=== PATIENT | female | born 1940 | race Caucasian/White ===

== ENCOUNTER → 2017-12-08 08:12 | Outpatient (CLI) | payer OTHER, SELFPAY ==
[2017-12-08 11:41] LABS: C-Reactive Protein 0.06 mg/dL (0.0-0.3); Creatine Kinase 119 U/L (26-192); TSH 1.17 uIU/mL (0.358-3.74)
[2017-12-08 15:22] LABS: ESR 13 MM/HR (0-30)
== END ==
PROVIDERS: PCP Family Medicine; Visit Provider Family Medicine
DX: R29.898 Other symptoms and signs involving the musculoskeletal system (principal)
CPT/HCPCS: 36415; 82550; 85652; 83519; 84443; 86140

== ENCOUNTER → 2017-12-11 02:29 | Outpatient (CLI) | payer OTHER, SELFPAY ==
--- NOTE | 2017-12-11 13:54 | DI.RPTCT_ITS ---
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 THORACIC SPINE: Evaluation of the dorsal spine reveals minimal degenerative changes involving the vertebral bodies with multilevel mild disc space narrowing. The posterior elements and neural canal are intact. There is no evidence of foraminal or central spinal stenosis. LUMBAR SPINE: The examination was carried out according to the usual protocol and reveals narrowed vacuum discs at L4-5 and L5-S1 and a vacuum phenomenon is also noted at L2-3 where there is a small disc protrusion into the superior endplate of L3. Facet joint degenerative changes are most pronounced at L4-5 and L5-S1. There is no evidence of spondylolysis or spondylolisthesis. There is a mild dextrorotoscoliotic curvature of the lumber spine. There are probable small disc protrusions at L3-4 and L4-5. SUMMARY: Fatty infiltration of the paraspinous musculature in the dorsal and lumbar spine is demonstrated, the findings most prominent in the lumbar region. There are mild degenerative changes involving the dorsal spine. Multiple narrowed vacuum discs are noted involving the mid and lower lumbar spine and facet joint DJD is evident.
== END ==
PROVIDERS: PCP Family Medicine; Visit Provider Family Medicine
DX: F44.4 Conversion disorder with motor symptom or deficit (principal); M51.35 Other intervertebral disc degeneration, thoracolumbar region; M51.27 Other intervertebral disc displacement, lumbosacral region; M62.89 Other specified disorders of muscle
CPT/HCPCS: 72128; 72131

== ENCOUNTER → 2017-12-30 13:30 | Outpatient (CLI) | payer OTHER, SELFPAY | PROVIDERS: PCP Family Medicine; Visit Provider Psychiatry & Neurology Neurology | DX: G71.0 Muscular dystrophy (principal) | CPT/HCPCS: 99205 ==

== ENCOUNTER 2017-12-31 10:15 | Outpatient (RCR) | payer OTHER, SELFPAY ==
--- NOTE | 2017-12-09 08:42 | PTTR_ITS ---
DATE: 12/09/17 SUBJECTIVE: Indicated she fatigues easily. OBJECTIVE: Therapeutic procedures ([id number]). * x HEP review: Given supine marching, supine unilateral knee fall outs and standing against wall step out exercise to promote body awareness. Have patient really focus on cervical and scap stabilization, as well as TA activation with each of these activities. Given a balloon to help with activation of TA musculature. * x See flow sheet: Focus on core stabilization in hook lying and standing positions. * x Provided skilled instruction in proper exercise performance * x Provided skilled manual cues to facilitate proper muscle recruitment and/ or movement pattern Direct treatment time: 35 minutes Total treatment time: 35 minutes
--- NOTE | 2017-12-11 13:36 | PTTR_ITS ---
DATE: 12/11/17 SUBJECTIVE: Alana states that she continues to struggle with standing upright. Has been working diligently to stand with shoulders pulled back and head held upright. Indicates she has been performing her HEP regularly, but finds the exercises challenging. OBJECTIVE: Therapeutic procedures ([id number]). * x See flow sheet: focus was on cervicoscapular retraction as well as core stabilization. Continues to utilize a balloon for activation of TA internal obliques and diaphragm. * Verbal and tactile cues were provided throughout today's session for proper positioning and isolation of specific muscles. appear to be less frustrated with performance of these exercises today than at her last session. Direct treatment time: 35 minutes Total treatment time: 35 minutes SG/gc
--- NOTE | 2017-12-16 11:00 | PTTR_ITS ---
DATE: 12/16/17 Co-treat with supervising PT, Oscar Farooq. OBJECTIVE: Therapeutic procedures ([id number]). * x See flow sheet: Focus on core, scap, cervical and hip stabilizers. General strengthening for bilateral UE/LEs was also performed. Added hamstring, quad machines, rows and shoulder extension with t-band in standing and treadmill with hands on railings for 5 minutes. As per discussion with supervising PT. * x Provided skilled instruction in proper exercise performance * x Provided skilled manual cues to facilitate proper muscle recruitment and/ or movement pattern Direct treatment time: 35 minutes Total treatment time: 35 minutes
--- NOTE | 2017-12-16 13:34 | PTTR_ITS ---
DATE: 12/16/17 SUBJECTIVE: Alana has multiple questions about her CT Scan results. Does not really understand the potential diagnosis she has: Camptocormia OBJECTIVE: Therapeutic procedures ([id number]). * x See flow sheet: reviewed TA activation * Provided tactile and verbal cues in supine, sitting and standing. * The remaining time was spent on patient education regarding her potential diagnosis and plan of action regarding Neuro consultations. We did review her CT Scan. See results via EMR. She apparently has a neuro consultation in a couple of weeks. We talked about focus of P.T. being on strengthening and conditioning of hip stabilizers, LEs and upper / middle back, particularly scapular stabilization while we continue to work on what muscle control she has left of the para spinal musculature. Want to progress with quadruped activity to see how she tolerates this. Direct treatment time: 10:30 til 10:45 A.M. She completed the remainder of today's strengthening with the PARENT TRA[employer]ER. For details see her note. Assessment: She appears to have a pretty good attitude moving forward. Certainly benefitted from patient education regarding symptom presentation and potential diagnosis. Plan: Continue 2x per week x4 weeks progressing to our Wellness Program at that time. MM/gc
--- NOTE | 2017-12-22 10:30 | PTTR_ITS ---
DATE: 12/22/17 SUBJECTIVE: Indicated she is doing fair today. Stated she sees the Neurologist in the next week or so. OBJECTIVE: Therapeutic procedures ([id number]). * x See flow sheet: Focus on core strengthening and general conditioning. Added standing W yuki exercise, facing wall today. * x Provided skilled instruction in proper exercise performance * x Provided skilled manual cues to facilitate proper muscle recruitment and/ or movement pattern Direct treatment time: 35 minutes Total treatment time: 35 minutes
--- NOTE | 2017-12-24 10:30 | PTTR_ITS ---
DATE: 12/24/17 SUBJECTIVE: Indicated she see her Neurologist next Friday. OBJECTIVE: Therapeutic procedures ([id number]) * x See flow sheet: Focus on strengthening of bilateral UE/ LEs and core / hip stabilization. Added standing UBE to program today. * x Provided skilled instruction in proper exercise performance * x Provided skilled manual cues to facilitate proper muscle recruitment and/ or movement pattern. Direct treatment time: 35 minutes Total treatment time: 35 minutes
--- NOTE | 2017-12-29 09:45 | PTTR_ITS ---
DATE: 12/29/17 SUBJECTIVE: No complaints. Sees Dr. Hooks tomorrow. Therapeutic procedures ([id number]). LE strengthening, core stabilization with verbal and tactile cues for proper recruitment of TA as well as modification for her standing and walking activities. She was told to use the railing on treadmill to avoid such a forward flexed posture. Direct treatment time: 30 mins Total treatment time: 30 mins. Did issue her a MD note which is scanned into EMR. A: Holding up well with her strengthening. 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 Will have her continue 2x a week. Begin instruction in MSP (Minimally Supervised Program) so she can transition to this in the next 2 weeks. MM/dl
--- NOTE | 2017-12-31 10:15 | PTTR_ITS ---
DATE: 12/31/17 SUBJECTIVE: Alana states she just does not feel up to exercising today. 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 Hooks last week. Reports she hasn' t really slept due to stress and has not been eating properly. OBJECTIVE: Consultation regarding her recent diagnosis. Patient certainly very emotionally distraught secondary to this more recent diagnosis and alot of questions that remain unanswered. We discuss getting in contact with her PCP as I express concern moreso for her overall well being regarding her lack of sleep and poor nutritional habits. Therapeutic procedures ([id number]). * HEP review: Exercises that she can do at home while she is not exercising in the clinic consisting of some TA activation for Phase I supine postural stabilization. Also discussed continuation on MSP which we can start after next weeks instruction of exercise for a couple visits next week. Direct treatment time: 20 mins Total treatment time: 20 mins Also had conversation regarding ACASH brace (cruciform anterior spinal hypertension orthosis). Her neurologist did offer a prescription for this, which she was given information to [facility] to look into obtaining one of these braces that will help her maintain better upright stance with walking. She did appear agreeable to this and thinks anything she can do to help herself maintain an upright standing position will be continued improvement. P: See patient 2x next week for instruction in MSP, then transition her to MSP. MM/dl
== END 2018-01-02 23:59 | disposition home or self-care (01) ==
LOC: PT 10:15
PROVIDERS: PCP Family Medicine; Referring Provider Family Medicine; Visit Provider Family Medicine
DX: R26.81 Unsteadiness on feet (principal); M62.81 Muscle weakness (generalized)
CPT/HCPCS: 97110

== ENCOUNTER 2018-11-24 00:20 | Outpatient (CLI) | payer OTHER, SELFPAY ==
--- NOTE | 2018-11-24 13:50 | DI.RAD_ITS ---
SYMPTOMS/DIAGNOSIS: OSTEOPOROSIS, M81.0 DEXA SCAN: Routine examination. The lateral view of the spine shows no compression deformities. Evaluation of the left hip shows a total T score of -2.3 and a Z score of -0.4. This is consistent with osteopenia and an increased fracture risk. This compares with a total T score of -0.7 from 2008. Evaluation of the lumbar spine shows a total T score of -0.9 and a Z score of 1.7, which is within normal limits. This is unchanged compared to the examination from 2008. IMPRESSION: Osteopenia in the left hip.
== END 2018-11-24 00:40 ==
PROVIDERS: PCP Family Medicine; Visit Provider Physician Assistant Medical
DX: M85.88 Other specified disorders of bone density and structure, other site (principal)
CPT/HCPCS: 77080

== ENCOUNTER 2018-12-23 01:45 | Outpatient (CLI) | payer OTHER, SELFPAY ==
[2018-12-23 12:41] LABS: Absolute Basophil Count 0.03 k/cumm (0.0-0.2); Absolute Eosinophil Count 0.14 k/cumm (0.0-0.7); Absolute Lymphocyte Count 1.72 k/cumm (1.2-3.4); Absolute Monocyte Count 0.35 k/cumm (0.11-0.7); Absolute Neutrophil Count 1.92 k/cumm (1.2-6.7); Basophils % 0.7; Eosinophils % 3.4; HCT 39.4 % (36.0-46.0); HGB 12.8 g/dL (12.0-15.5); Lymphocytes % 41.3; Mean Corp. HGB Concentration 32.5 g/dL (32.0-36.0); Mean Corpuscular Hemoglobin 30.6 pg (27.0-33.0); Mean Corpuscular Volume 94.3 fL (80-95); Mean Platelet Volume 10.4 fL (8.0-11.0); Monocytes % 8.4; Neutrophils % 46.2; Platelet Count 264 x1000/uL (130-400); RBC 4.18 m/cumm (4.00-5.20); RBC Distribution Width 12.8 % (11.7-14.6); White Blood Cell Count 4.16 k/cumm (4.4-10.8)
[2018-12-23 13:05] LABS: ALT 18 U/L (12-78); AST 11 U/L (15-37); Albumin 2.8 g/dL (3.4-5.0); Alkaline Phosphatase 55 U/L (46-116); Anion Gap 7.4 mmol/L (3-11); BUN 21 mg/dL (7-18); Bilirubin, Total 0.5 mg/dL (0.2-1.0); CO2 28.6 mmol/L (21.0-32.0); CREATININE 0.93 mg/dL (0.55-1.02); Chloride 106 mmol/L (98-107); Estimated GFR 58.46 (mL/min/1.73m2); Glucose 111 mg/dL (70-100); Potassium 4.7 mmol/L (3.5-5.1); Sodium 142 mmol/L (136-145); TSH (W/Ref FT4) 0.94 uIU/mL (0.36-3.74); Total Protein 6.8 g/dL (6.4-8.2)
== END 2018-12-23 02:05 ==
PROVIDERS: PCP Family Medicine; Visit Provider Internal Medicine
DX: M25.559 Pain in unspecified hip (principal); R52 Pain, unspecified; R50.9 Fever, unspecified
CPT/HCPCS: 36415; 80053; 84443; 85025

== ENCOUNTER 2019-01-04 09:54 | Emergency (ER) | payer OTHER, SELFPAY ==
[2019-01-04 10:02] VITALS: BP 156/62; PULSE 82; RESP 16; TEMP 36.6; O2SAT 98
--- NOTE | 2019-01-04 10:29 | DI.RAD_ITS ---
SYMPTOMS/DIAGNOSIS: HIP PAIN, BACK PAIN, LEFT-SIDED SCIATICA PELVIS AND LEFT HIP: The hip joint spaces are well maintained. The SI joints show minimal spurring. Surgical clips are noted above the left iliac crest. There is increased stool seen throughout the colon. The sacrum is partially obscured. There are severe degenerative disc changes in the lower lumbar spine. IMPRESSION: No acute abnormality. LUMBAR SPINE: Comparison is made with September,. There are right upper quadrant surgical clips and additional surgical clips in the mid and left side of the abdomen. There is an apparent mild dextroscoliosis versus patient positioning. There are severe degenerative disc changes at L4-5 and L5-S1. There are increased osteophytes from the endplates when compared with the previous exam. The remaining disc levels show small endplate osteophytes. There is some narrowing on the left side at L3-4 contributing to mild scoliosis. IMPRESSION: Advanced degenerative disc changes at L4-5 and L5-S1.
[2019-01-04] MEDS: Ibuprofen 600 MG TAB PO (10:39)
[2019-01-04] MEDS: Lidocaine 5% Patch 1 PATCH TP (10:40)
--- NOTE | 2019-01-04 10:45 | ED.GENADUL_ITS ---
Discharge Plan Disposition Patient Disposition: HOME Condition: Stable Discharge Details Chief Complaint: Nk/Back Pain Clinical Impression: Left lumbar radiculopathy Primary Care Provider: Gilbert Sarmiento ED Provider: Kieran Mena Home Meds and New Rx's Prescriptions: New prednisone 20 mg tablet See Rx Instructions .ROUTE .COMPLEX Qty: 11 RF: 0 Continued ranitidine HCl 150 mg tablet 150 mg PO BID Qty: 180 RF: 3 calcium carbonate-vitamin D3 1 EACH tablet 1 ea PO RF: 0 lisinopril 10 mg tablet 10 mg PO DAILY Qty: 90 RF: 4 tramadol 50 mg tablet 50 mg PO Q8H PRN (Reason: pain) Qty: 30 RF: 0 Discharge Instructions Instructions: Lumbar Radiculopathy (ED), Lower Back Exercises (ED) Additional Instructions: Return to emergency department for any new or significant worsening of symptoms, fever chills, saddle anesthesia, change in bowel or bladder function or inability to move lower extremity's. Otherwise continue to take your medications as prescribed and as discussed and follow-up with your primary care provider for reassessment. Stand Alone Forms: Physical Therapy Referral Referrals: Gilbert Sarmiento MD [Primary Care Provider] - (Follow-up with your primary care provider for reassessment in the next 1 to 2 weeks if not improving) Discharge Data Discharge Date/Time-TO BE ENTERED AT DEPARTURE: 01/04/19 12:32 Medical Decision Making Patient presenting the emergency department for approximately 1 month of back pain with radiation down left extremity. Patient states that this started after she was assisting cleaning up an apartment and going up and down a ladder. Patient has been seen 2 times by primary care and attempted on different medications which she states that the steroids helped the most but once they were finished her back pain resumed. Patient denies any change in bowel or bladder function, saddle anesthesia, inability to move lower extremity. Physical exam shows left buttock tenderness but otherwise no lumbar spinal tenderness, no tenderness to palpation of the hip, normal range of motion of the lower extremities, pulses and sensation intact. Based on physical exam patient has no signs of cauda equina, central cord syndrome, or epidural abscess. Given patient's age and continued symptoms I do feel that plain film imaging may be prudent and beneficial to rule out any acute findings. Pending results patient given lidocaine patch and ibuprofen. Review of radiological imaging shows mostly level degenerative changes most prominent in L4-L5 and L5-S1. Otherwise no fracture or dislocation. Thorough discussion of treatment options was discussed with patient and family. After thorough discussion of different modalities we decided to put patient back on prednisone taper given that this initially worked but that patient had not taken them initially as prescribed. Otherwise patient was given referral to physical therapy to also evaluate her back pain. Patient pending MRI and possible pain clinic assessment which I feel is reasonable given her symptoms. Return precautions were discussed. After discussion of diagnosis and plan of care patient and family has no further needs, questions, or concerns and states clear understanding to return to the emergency department for any worsening symptoms. HPI General Mode of arrival: ambulatory . Date/Time Provider Initiated Documentation: 01/04/19 09:55 . Limitations to Documentation: no limitations . Information obtained by: patient and RN notes reviewed . History of Present Illness 78 year old F presents to the emergency department with the chief complaint of Back pain, described as moderate and similar to prior episodes, with intensity rated at 10. Quality is described as sharp, and is localized to the back. Patient started experiencing this month(s) (1) and it has been constant. Movement worsens symptoms . Patient notes no other symptoms.. Patient did receive the following treatments prior to arrival, NSAID Related Data Home Medications Medication Instructions Recorded Confirmed calcium carbonate-vitamin D3 1 ea PO 12/30/17 01/01/19 lisinopril 10 mg tablet 10 mg PO DAILY #90 tab 03/30/18 01/04/19 ranitidine HCl 150 mg tablet 150 mg PO BID #180 tab 04/10/18 01/04/19 tramadol 50 mg tablet 50 mg PO Q8H PRN #30 tab 01/03/19 01/04/19 prednisone See Rx Instructions .ROUTE 01/04/19 .COMPLEX #11 tab Previous Rx's Medication Instructions Recorded lisinopril 10 mg tablet 10 mg PO DAILY #90 tab 03/30/18 ranitidine HCl 150 mg tablet 150 mg PO BID #180 tab 04/10/18 tramadol 50 mg tablet 50 mg PO Q8H PRN #30 tab 01/03/19 prednisone See Rx Instructions .ROUTE 01/04/19 .COMPLEX #11 tab Allergies Allergy/AdvReac Type Severity Reaction Status Date / Time diazepam Allergy Severe HIVES Unverified 01/04/19 10:06 General Stated Complaint: Nk/Back Pain HARSHIL: 3 Review of Systems Constitutional Denies chills and Denies fever(s) Cardiovascular Denies chest pain and Denies dyspnea on exertion Respiratory Denies cough and Denies dyspnea on exertion Gastrointestinal Denies abdominal pain, Denies change in bowel habits, Denies diarrhea, Denies nausea and Denies vomiting Genitourinary Denies urinary incontinence Musculoskeletal Reports as per HPI, Reports back pain, Denies numbness and Reports radiating pain into limb Neurologic Denies numbness and Denies sensory deficit PFSH Medical History Anxiety (Acute) 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 Son No problems noted. Son No problems noted. Daughter No problems noted. Social History Smoking/Tobacco Use Status: Never Alcohol Intake: never Drug use: Never Substance use type: does not use Household members: spouse Pets and animals: Yes Pets and animals: cat(s) What type of physical activity do you participate in: none Duration: 45-60 minutes/day Frequency: 1-2 times per week Mackenzie/Yazidism: Nondenominational Special mackenzie needs: No Exam Const General: cooperative and no acute distress Orientation: alert, awake and oriented x3 Neck Neck: normal visual inspection, full ROM and no meningeal signs Resp Effort & Inspection: normal respiratory effort Auscultation: clear to auscultation bilaterally Cardio Rate: regular rate Rhythm: regular rhythm Heart Sounds: S1 normal and S2 normal GI Palpation: no hepatosplenomegaly, no aortic enlargement, no masses and no pulsatile masses Back/Spine/Pelvis Back: no CVA tenderness Cervical Spine: normal cervical lordosis, cervical ROM normal and No cervical spinal tenderness Thoracic/Lumbar Spine: No mass, pain with thoraco-lumbar ROM, No paraspinal tenderness, thoraco-lumbar ROM limited, No thoracic spinal tenderness and No lumbar spinal tenderness Pelvis: no pain with anterior-posterior compression, no pain with lateral compression, no buttock ecchymosis, buttock tenderness (mild) on the left, no buttock swelling, sciatic notch tenderness on the left and no tenderness over symphysis pubis Neuro General: alert, awake, oriented x3, moves all extremities, normal light touch, pain and propioception and no focal motor deficits DTR's: Rt Patellar: 1+, Lt Patellar: 1+, Rt Ankle: 1+ and Lt Ankle: 1+ Extrem Left lower extremity: hip/thigh Details: normal ROM; no tenderness and no swelling, knee Details: normal ROM; no tenderness and foot Details: vascular exam Details: dorsalis pedis pulse present, posterior tibial pulse present and normal capillary refill Course Vital Signs Temperature 36.6 C 01/04/19 10:02 Pulse 82 01/04/19 10:02 Respiratory Rate 16 01/04/19 10:02 Blood Pressure 156/62 H 01/04/19 10:02 Pulse Oximetry 98 01/04/19 10:02 Temperature 36.6 C 01/04/19 10:02 Temperature Source Skin 01/04/19 10:02 Pulse 82 01/04/19 10:02 Respiratory Rate 16 01/04/19 10:02 Respiratory Effort Non-Labored 01/04/19 10:02 Blood Pressure 156/62 H 01/04/19 10:02 Blood Pressure Position Sitting 01/04/19 10:02 Pulse Oximetry 98 01/04/19 10:02 Oxygen Delivery Method Room Air 01/04/19 10:02 Oxygen Flow Rate 0 01/04/19 10:02 Pain Level 10 01/04/19 10:43
--- NOTE | 2019-01-04 11:05 | DI.VRAD_ITS ---
EXAM: XR Lumbosacral Spine, 4 or 5 Views EXAM DATE/TIME: 01/04/2019 10:31 AM CLINICAL HISTORY: 78 years old, female; Low back pain TECHNIQUE: Imaging protocol: XR of the lumbosacral spine, 4 or 5 views. COMPARISON: CR LUMBAR SPINE AP, LAT 09/22/2013 11:55 AM FINDINGS: Vertebrae: There is a curvature of the lumbar spine convex to the right centered at L3. The lumbar vertebral bodies maintain height. There is a grade 1 degenerative spondylolisthesis of L4 on L5. Facet arthropathy is present at L4-L5 and L5-S1. Multilevel disc degeneration is present with disc space narrowing being most prominent at L4-L5 and L5-S1. No fracture. Soft tissues: No acute soft tissue abnormality. IMPRESSION: Multilevel degenerative changes, most prominent at L4-L5 and L5-S1. Dictated and Authenticated by: Torsten Serrano MD. Ordering:SAIDA Alcaraz MD
--- NOTE | 2019-01-04 11:06 | DI.VRAD_ITS ---
EXAM: XR Left Hip with Pelvis when Performed EXAM DATE/TIME: 01/04/2019 10:31 AM CLINICAL HISTORY: 78 years old, female; Sciatic pain 1 month TECHNIQUE: Imaging protocol: XR Left hip with pelvis when performed. Views: 2 or 3 views. COMPARISON: CR LEFT HIP COMPLETE \T\ AP PELVIS 09/22/2013 11:54 AM FINDINGS: Bones/joints: No fracture. No dislocation. No hip joint space narrowing. The symphysis pubis and sacroiliac joints are not diastatic. The sacral arcuate lines are intact. Soft tissues: No acute soft tissue abnormality. IMPRESSION: No acute osseous abnormality. Dictated and Authenticated by: Torsten Serrano MD. Ordering:SAIDA Alcaraz MD
[2019-01-04 12:30] VITALS: BP 150/70; PULSE 67; RESP 16; TEMP 36.7; O2SAT 97
== END 2019-01-04 12:32 | disposition home or self-care (01) ==
PROVIDERS: Emergency Provider Nurse Practitioner Family; PCP Family Medicine
DX: M54.16 Radiculopathy, lumbar region (principal); X50.3XXA Overexertion from repetitive movements, initial encounter; I10 Essential (primary) hypertension
CPT/HCPCS: 99284; 72110; 73502

== ENCOUNTER 2019-01-06 00:39 | Outpatient (CLI) | payer OTHER, SELFPAY ==
--- NOTE | 2019-01-06 10:20 | DI.MRI_ITS ---
SYMPTOMS/DIAGNOSIS: PAIN IN LEFT BUTTOCK RADIATING DOWN LEFT LEG, M54.16, RADICULOPATHY MRI OF THE LUMBAR SPINE: Comparison is made with plain films dated January, and CT dated December,. T1, T2 and STIR sagittal, T1 and T2 axial and T1 coronal sequences were performed. There are no compression fractures. There is some red marrow reconversion. No suspicious high signal lesions are seen in the marrow. The conus medullaris appears intact. The T12-L1 and L1-2 levels are unremarkable. At L2-3, there is mild disc bulging and mild facet degenerative changes but no significant central canal stenosis or neural foraminal narrowing. At L3-4, there is moderate loss of disc height and mild disc bulging. There are facet degenerative changes and ligamentous hypertrophy, which cause mild narrowing of the AP dimension of the central canal. There is also left neural foraminal narrowing. There is a question of a disc fragment seen in the left neural foramen. At L4-5, there is severe loss of disc height and endplate osteophytes, which were more prominent toward the left side. There is ligamentous hypertrophy and facet degenerative changes, greater on the left. There is mild to moderate central canal stenosis, as well as moderate to severe left neural foraminal narrowing. At L5-S1, there is marked loss of disc height and mild circumferentially projecting endplate osteophytes. There are mild facet degenerative changes. There is no central canal stenosis. There is mild right neural foraminal narrowing. IMPRESSION: Multilevel degenerative disc changes, which are eccentric toward the left, causing neural foraminal narrowing. There is a question of a small disc protrusion seen in the left neural foramen at L3-4.
== END 2019-01-06 00:59 ==
PROVIDERS: PCP Family Medicine; Visit Provider Family Medicine
DX: M54.16 Radiculopathy, lumbar region (principal); M79.605 Pain in left leg; M51.17 Intervertebral disc disorders with radiculopathy, lumbosacral region; M51.16 Intervertebral disc disorders with radiculopathy, lumbar region
CPT/HCPCS: 72148

== ENCOUNTER 2021-04-09 03:11 | Outpatient (CLI) | payer MEDICARE, OTHER, SELFPAY ==
[2021-04-09 07:25] LABS: HCT 39.9 % (36.0-46.0); HGB 12.8 g/dL (11.2-15.7); MCH 29.7 pg (27.0-33.0); MCHC 32.1 % (32.0-36.0); MCV 92.6 fL (80-95); MPV 9.4 fL (8.0-11.0); Platelet Count 236 10^3/uL (130-400); RBC 4.31 10^6/uL (3.93-5.22); RDW 12.8 % (11.7-14.6); RDW-SD 43.9 fL; WBC 4.27 10^3/uL (4.4-10.8)
[2021-04-09 08:43] LABS: ALT 20 U/L (14-59); AST 15 U/L (15-37); Albumin 3.9 g/dL (3.4-5.0); Alkaline Phosphatase 61 U/L (46-116); Anion Gap 8.5 mmol/L (3-11); BUN 24 mg/dL (7-18); Bilirubin, Total 0.5 mg/dL (0.2-1.0); CO2 28.5 mmol/L (21.0-32.0); CREATININE 0.8 mg/dL (0.55-1.02); Calcium 9.9 mg/dL (8.5-10.1); Chloride 105 mmol/L (98-107); Glucose 115 mg/dL (74-106); Potassium 4.1 mmol/L (3.5-5.1); Sodium 142 mmol/L (136-145); Total Protein 7.1 g/dL (6.4-8.2)
== END 2021-04-09 03:12 | disposition home or self-care (01) ==
LOC: LBO 03:12
PROVIDERS: PCP Nurse Practitioner Family; Visit Provider Nurse Practitioner Family
DX: Z00.00 Encounter for general adult medical examination without abnormal findings (principal)
CPT/HCPCS: 36415; 80053; 85027

== ENCOUNTER → 2021-05-09 10:42 | Outpatient (BNVA) | payer MEDICARE, SELFPAY | PROVIDERS: PCP Nurse Practitioner Family; Referring Provider Nurse Practitioner Family; Visit Provider Physical Therapy Assistant | DX: L72.3 Sebaceous cyst (principal) | CPT/HCPCS: 11401; 99214 ==

== ENCOUNTER 2022-05-01 02:28 | Outpatient (CLI) | payer MEDICARE, SELFPAY ==
[2022-05-01 12:24] LABS: CREATININE 0.8 mg/dL (0.55-1.02); Estimated GFR 74.44 (mL/min/1.73m2); Potassium 4.4 mmol/L (3.5-5.1)
== END 2022-05-01 02:29 | disposition home or self-care (01) ==
LOC: LOS 02:28
PROVIDERS: PCP Nurse Practitioner Family; Visit Provider Nurse Practitioner Family
DX: I10 Essential (primary) hypertension (principal)
CPT/HCPCS: 36415; 82565; 84132

== ENCOUNTER 2023-05-06 02:01 | Outpatient (CLI) | payer MEDICARE, SELFPAY ==
--- OUTSIDE RECORDS SUMMARY | 2023-05-06 02:02 | XMS_ITS | Patient Health Record ---
Author Name Unknown Organization [facility], Address [address] [place], [place] [id number] Care Team Providers Care Electrician Outside Name Role Phone Erlin Castro NP Primary Care Provider Unavail able [place], [place] Unavailable [phone] ALLERGIES Allergen (clinical drug ingredient) Drug/Non Drug Allergy documented on EMR Reaction Allergy Type Onset Date Status diazepam Valium Unknown Drug Allergy Active RESULTS Component Value Reference Range Notes CA 125 Reviewed date:12/03/2022 09:44:21 AM Interpretation:7 normal Performing Lab:[facility], [facility] [id number] Cb Dong M.D. Notes/Report: FASTING: UNKNOWN CA 125 7 <35 U/mL This test was performed using the Siemens Chemiluminescent method. Values obtained from different assay methods cannot be used interchangeably. CA 125 levels, regardless of value, should not be interpreted as absolute evidence of the presence or absence of disease. NO COLLECTION DATE RECEIVED. WE HAVE USED THE DATE THE SPECIMEN WAS RECEIVED BY THIS LABORATORY THE COLLECTION DATE. IF THIS IS INCORRECT, PLEASE CONTACT CLIENT SERVICES. PHONE NUMBER: REASON FOR REFERRAL No Information MEDICATIONS Medication SIG (Take, Route, Frequency, Duration) Notes Start Date End Date Status Lisinopril 10 MG 1 tablet Orally Once a day Active Pepcid AC Maximum Strength 20 MG 1 tablet at bedtime as needed Orally Once a day for 30 day(s) Active Multi Complete - as directed Orally Active Advil 200 MG 1 tablet as needed O rally every 6 hrs Active IMMUNIZATIONS Vaccine Route Administration Date Status Comme nts FLU 2013 SC Subcutaneous 01/28/2014 Administered FLU 2016 IM Intramuscular 02/02/2016 Administered FLU VACCINE IM Intramuscular 02/05/2012 Administered flu v accine given L deltoid per protocol SOCIAL HISTORY Tobacco Use: Social History Observation Description Date Details (start date - stop date) Never Smoker NA - NA Sex Assigned At : Social History Observation Description Sex Assigned At Unknown Smoking: Question Answer Notes Are you a: Never Smoker PROBLEMS Problem Type ICD Code Onset Dates Problem Status W/U Status Risk SNOMED Code Notes Problem Personal history of malignant neoplasm of ovary (Z85.43) Active confirmed History of malignant neoplasm of ovary (695505084) Problem 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 Breast cance r genetic marker of susceptibility positive (144458560) Problem 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 [place], [place] [id number] 11/19/2022 VALE PARMAR Genetic susceptibility to malignant neoplasm of breast Z15.01 ; Personal history of malignant neoplasm of ovary Z85.43 and Personal history of other medical treatment Z92.89 ASSESSMENTS Encounter Date Diagnosis Assessment Notes Treatment Notes Treatment Clinical Notes 11/19/2022 Genetic susceptibility to malignant neoplasm of breast (ICD-10 - Z15.01) She continues to have mammograms. She now sees HUEY Cosby. They discussed not doing the MRI every year, only if needed. Alana's breast exam today is normal. I am sending this note to the [facility] 11/19/2022 Personal history of malignant neoplasm of ovary (ICD-10 - Z85.43) 11/19/2022 Personal history of other medical treatment (ICD-10 - Z92.89) She has recent increasing fatigue and weakness, but she doesn't feel these are related to her treatment 11/19/2022 Other Incontinence mai s resolved No suspicious findings on exam. Blood drawn for CA125. Blood drawn from left ACF vein per protocol by [facility]. Anastasiya mckeon reviewed-pt to call with any changes PLAN OF TREATMENT Next Appt Details Provider Name:VALE MUELLER BBAKH, 11/21/2023 09:00:00 AM, [address], [address], [place], [place], [id number], Insurance Providers Payer Name Payer Address Payer Phone Subscriber Number Group Number Insured Name Patient Relationship to Insured Coverage Start Date Coverage End Date [employer] PPO Medicare [address] [address] [place] [address] [phone] [id number] Alana Guaman Self - patient is the insured MEDICAL (GENERAL) HISTORY Medical History History ICD Code Ovarian Cancer stage III BrCA2 mutation H/O vit B12 deficiency urinary stress incontinence h/o depression Uterine prolapse without mention of vagi nal wall prolapse 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
[2023-05-06 13:15] LABS: Calculated LDL 145 mg/dL (<100); Cholesterol 265 mg/dL (<200); HDL Cholesterol 108 mg/dL (40-60); Potassium 4.3 mmol/L (3.5-5.1); Triglyceride 62 mg/dL (<150)
== END 2023-05-06 02:02 | disposition home or self-care (01) ==
LOC: LOS 02:01
PROVIDERS: PCP Nurse Practitioner Family; Visit Provider Nurse Practitioner Family
DX: I10 Essential (primary) hypertension (principal); Z13.6 Encounter for screening for cardiovascular disorders
CPT/HCPCS: 36415; 80061; 82565; 84132

== ENCOUNTER 2024-01-12 01:10 | Outpatient (CLI) | payer MEDICARE, SELFPAY ==
--- NOTE | 2024-01-12 08:45 | DI.RAD_ITS ---
Exam(s) XR HIP LT COMPLETE AP PELVIS EXAM: XR HIP LT COMPLETE AP PELVIS CLINICAL HISTORY: Worsening hip pain M25.552 PAIN LEFT HIP. TECHNIQUE: 2D digital imaging was performed. Two views. COMPARISON: CR XR hip LT complete AP pelvis from 01/04/2019 FINDINGS: BONES: No acute fracture is present. No bony destructive lesion is seen. JOINTS: No dislocation present. The hip joint spaces are maintained. No significant periarticular spurring. Mild spurring at the AC joint. 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 SOFT TISSUE: Normal. IMPRESSION: Unremarkable radiographs of the left hip. 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 DATA REPOSITORY: RADIATION DOSE DELIVERED:
== END 2024-01-12 01:30 ==
LOC: DI 01:10
PROVIDERS: PCP Nurse Practitioner Family; Visit Provider Nurse Practitioner Family
DX: M25.552 Pain in left hip (principal)
CPT/HCPCS: 73502

== ENCOUNTER 2024-05-19 03:13 | Outpatient (CLI) | payer MEDICARE, SELFPAY ==
[2024-05-19 11:26] LABS: Anion Gap 6.3 mmol/L (3-11); BUN 28 mg/dL (7-18); CO2 29.7 mmol/L (21.0-32.0); Calculated LDL 150 mg/dL (<100); Chloride 107 mmol/L (98-107); Cholesterol 275 mg/dL (<200); Estimated GFR 56.25 (mL/min/1.73m2); Glucose 131 mg/dL (74-106); HDL Cholesterol 115 mg/dL (40-60); Potassium 4.6 mmol/L (3.5-5.1); Sodium 143 mmol/L (136-145); Triglyceride 52 mg/dL (<150)
== END 2024-05-19 03:14 | disposition home or self-care (01) ==
LOC: LOS 03:13
PROVIDERS: PCP Nurse Practitioner Family; Visit Provider Nurse Practitioner Family
DX: Z13.1 Encounter for screening for diabetes mellitus (principal); Z13.6 Encounter for screening for cardiovascular disorders
CPT/HCPCS: 36415; 80048; 80061